=== PATIENT | female | born 2000 | race Caucasian/White ===

== ENCOUNTER 2020-03-28 13:02 | Emergency (ER) | payer OTHER, SELFPAY ==
[2020-03-28 13:15] VITALS: BP 122/63; PULSE 80; RESP 20; TEMP 37.8; O2SAT 100
--- NOTE | 2020-03-28 13:33 | ED.URI ---
HPI - URI/Sore Throat General Chief Complaint: Upper Respiratory Infection Stated Complaint: sore throat Time Seen by Provider: 03/28/20 13:19 Source: patient and RN notes reviewed Mode of arrival: ambulatory Limitations: no limitations History of Present Illness HPI Narrative: Patient presents today with a 4-day history of sore throat that increases with swallowing. Denies fever, cough, congestion, runny nose. Currently rates her sore throat 05/09 and has been taking Tylenol with mild relief. Reports she has had strep throat 3 times in the last 3 months, and all 3 times she was treated with amoxicillin by her PCP. MD elicited complaint: sore throat Related Data Home Medications Medication Instructions Recorded Confirmed norgestimate-ethinyl estradiol 1 tablet PO DAILY 03/28/20 03/28/20 [Sprintec (28)] valacyclovir 500 mg PO DAILY 03/28/20 03/28/20 Allergies Allergy/AdvReac Type Severity Reaction Status Date / Time menthol Allergy Unknown Rash Verified 03/28/20 13:19 Sulfa (Sulfonamide Allergy Unknown Rash Verified 03/28/20 13:19 Antibiotics) idea man AdvReac Unknown Unknown Uncoded 03/28/20 13:19 Review of Systems Review of Systems: Narrative: CONSTITUTIONAL: Denies body aches, fever, chills, or sweats. EYES: Denies visual changes, redness, or discharge. ENT: Denies rhinorrhea, congestion, or otalgia.+ Sore throat CARDIOVASCULAR: Denies chest pain, palpitations, or edema. RESPIRATORY: Denies cough or dyspnea. GASTROINTESTINAL: Denies abdominal pain, nausea, vomiting, or diarrhea. GENITOURINARY: Denies dysuria or hematuria. SKIN: Denies rash, itching, or wounds. MUSCULOSKELETAL: Denies back pain, joint pain, or myalgia. NEUROLOGIC: Denies headache, numbness, tingling, or weakness. PSYCH: Denies depression or anxiety. [facility] Past Medical History Medical History (Updated 03/28/20 @ 13:36 by RUPERTO Platt, ) Migraine Social History Social History Smoking status: Never smoker Gender identity (if verbalized by the patient): Female Comments At time of signature, I have reviewed and agree with nursing past medical, surgical, social and family history unless otherwise noted. Please see nursing chart for further information. There is no relevant family history pertinent to the presenting complaint Exam Narrative: Exam Narrative: GENERAL: Well-appearing, well-nourished, and in no acute distress. HEAD: Normocephalic, atraumatic. EYES: EOMI. No redness or drainage. Conjunctivae normal. ENT: Mucous membranes pink and moist. Nares clear. No rhinorrhea. TMs normal bilaterally. Throat mildly erythematous and edematous. Tonsils 2+ without exudate. Uvula midline. NECK: Normal AROM. Supple. Left anterior cervical chain lymphadenopathy. CHEST: No respiratory distress. Clear to auscultation. HEART: Regular rate and rhythm. No murmur appreciated. Normal peripheral pulses. EXTREMITIES: Normal range of motion. No edema. SKIN: Warm, dry, no rash. Capillary refill normal. Normal skin turgor. NEURO: No focal deficits. Alert and oriented x3. Gait steady. PSYCH: Normal affect. No signs of depression or anxiety. Course Vital Signs Vital signs: Vital Signs Temperature 100.0 F H 03/28/20 13:15 Pulse Rate 80 03/28/20 13:15 Respiratory Rate 03/28/20 13:15 Blood Pressure 122/63 03/28/20 13:15 Pulse Oximetry 100 03/28/20 13:15 Temperature 100.0 F H 03/28/20 13:15 Pulse Rate 80 03/28/20 13:15 Respiratory Rate 03/28/20 13:15 Blood Pressure 122/63 03/28/20 13:15 Pulse Oximetry 100 03/28/20 13:15 Reviewed. Pt has been instructed to follow up with her PCP regarding her elevated blood pressure today. MDM - URI/Sore Throat Differential Diagnosis Differential diagnosis: Likely upper respiratory infection, otitis media, viral infection, pharyngitis and other (Strep throat) Lab Data Attestation: I reviewed th
== END 2020-03-28 13:39 | disposition home or self-care (01) ==
PROVIDERS: Emergency Provider Nurse Practitioner; PCP Nurse Practitioner Family
DX: J02.0 Streptococcal pharyngitis (principal)
CPT/HCPCS: 87880; 99213; G0463

== ENCOUNTER 2020-05-17 00:33 | Outpatient (CLI) | payer OTHER, SELFPAY ==
[2020-05-17 18:31] LABS: SARS-CoV-2 RNA PCR Positive
== END 2020-05-17 00:34 | disposition home or self-care (01) ==
LOC: ANHCOVIDDT 00:33
PROVIDERS: PCP Nurse Practitioner Family; Visit Provider Otolaryngology
DX: U07.1 COVID-19 (principal)
CPT/HCPCS: 87635; C9803; U0003

== ENCOUNTER 2022-07-01 16:18 | Emergency (ER) | payer OTHER, SELFPAY ==
[2022-07-01 16:25] VITALS: BP 135/76; PULSE 89; RESP 18; TEMP 37.3; O2SAT 100
--- NOTE | 2022-07-01 16:26 | ED.SKABFB ---
HPI - Skin/Abscess/Foreign Bdy General Chief complaint: Skin/Abscess/Foreign Body Stated complaint: rash Time Seen by Provider: 07/01/22 16:26 Source: patient, RN notes reviewed and old records reviewed Mode of arrival: ambulatory Limitations: no limitations History of Present Illness HPI narrative: 22-year-old female who presents to [facility] care with complaints of rash to the top of her head and forehead for 2 days. Patient has raised red blistery lesions noted to the top of head and to forehead which are red blistery with yellow drainage and crusty appearance which patient reports are itchy and painful. Patient states that she has not used any new makeup, no new skin products or any new foods or medications. MD complaint: rash and lesion Onset (ago): day(s) (2) Severity scale (1-10): 4 Treatments prior to arrival: OTC topical medication and Benadryl Related Data Home Medications Medication Instructions Recorded Confirmed norgestimate 0.25 mg-ethinyl 1 tablet PO DAILY 03/28/20 05/08/20 estradiol 35 mcg tablet (Sprintec (28)) valacyclovir 500 mg tablet 500 mg PO DAILY 03/28/20 05/08/20 buspirone 5 mg tablet mg 07/01/22 escitalopram oxalate 10 mg tablet mg 07/01/22 Allergies Allergy/AdvReac Type Severity Reaction Status Date / Time menthol Allergy Unknown Rash Verified 07/01/22 16:26 Sulfa (Sulfonamide Allergy Unknown Rash Verified 07/01/22 16:26 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 EYES: Denies visual changes, redness, or discharge. ENT: Denies rhinorrhea, congestion, sore throat, or otalgia. CARDIOVASCULAR: Denies chest pain, palpitations, or edema. RESPIRATORY: Denies cough or dyspnea. GASTROINTESTINAL: Denies abdominal pain, nausea, vomiting, or diarrhea. GENITOURINARY: Denies dysuria or hematuria. SKIN: Positive for red blistery crusting lesions to the top of her head and on forehead for 2 days itchy and painful MUSCULOSKELETAL: Denies back pain, joint pain, or myalgia. NEUROLOGIC: Denies headache, numbness, or weakness. PSYCHIATRIC: positive for anxiety or depression. All systems reviewed & are unremarkable except as noted in HPI and below PMFSH Past Medical History Medical History (Updated 07/04/22 @ 10:56 by Lazara Blanchard NP) Anxiety Foot fracture Migraine Strep throat Social History Social History Smoking status: Never smoker Gender identity (if verbalized by the patient): Female Spiritual care concerns: No Comments At time of signature, agree with nursing past medical, surgical, social and family history. There is no relevant family history pertinent to the presenting complaint Exam Narrative: GENERAL: Well-appearing, well-nourished, and in no acute distress. HEAD: Normocephalic, atraumatic. EYES: PERRLA and EOMI. ENT: Nares clear, no rhinorrhea or epistaxis. Mucous membranes moist.TM's normal, throat normal with no lesions or exudates, mild tonsil swelling without redness NECK: Supple.no lymphadenopathy CHEST: Clear to auscultation. No respiratory distress.SAO2 100% on room air HEART: Regular rate and rhythm. No murmur heard. Normal peripheral pulses. ABDOMEN: Soft, nontender, nondistended, normal active bowel sounds. Normal range of motion. No edema. SKIN: Warm, dry, red lesions on head and forehead which are crusty with yellowish drainage itchy and painful NEURO: No focal deficits. Alert and oriented x3. Course Course Level of Care: Express Care Visit Vital Signs Vital signs: Vital Signs Temperature 37.3 C 07/01/22 16:25 Pulse Rate 89 07/01/22 16:25 Respiratory Rate 18 07/01/22 16:25 Blood Pressure 135/76 07/01/22 16:25 Pulse Oximetry 100 07/01/22 16:25 Oxygen Delivery Room Air 07/01/22 16:25 Temperature 37.3 C 07/01/22 16:27 Pulse Rate 89 07/01/22 16:27 Respir
[2022-07-01 16:27] VITALS: BP 135/76; PULSE 89; RESP 18; TEMP 37.3; O2SAT 100
== END 2022-07-01 16:56 | disposition home or self-care (01) ==
PROVIDERS: Emergency Provider Registered Nurse; PCP Nurse Practitioner Family
DX: L01.00 Impetigo, unspecified (principal); F41.9 Anxiety disorder, unspecified
CPT/HCPCS: 99213; G0463

== ENCOUNTER 2022-08-23 11:09 | Emergency (ER) | payer OTHER, SELFPAY ==
--- NOTE | ~2022-08-23 | XR_ITS ---
EXAMINATION: XR wrist RT min 3V DATE: 08/23/2022 11:58 INDICATION: Distal right radius pain for 2 months. TECHNIQUE: 4 views of right wrist were obtained. COMPARISON: None. FINDINGS: Bone alignment is normal. No fracture. Joint spaces are well maintained. IMPRESSION: 1. Normal right wrist. Reviewed, dictated and finalized at location A. IMPRESSION: 1. Normal right wrist.
[2022-08-23 11:40] VITALS: BP 119/76; PULSE 92; RESP 18; TEMP 36.9; O2SAT 99
--- NOTE | 2022-08-23 12:07 | ED.UPPEXIN ---
HPI - Extremity Injury (Upper) General Chief Complaint: Extremity Injury, Upper Stated Complaint: rt wrist injury Time Seen by Provider: 08/23/22 11:50 Source: patient Mode of arrival: ambulatory Limitations: no limitations History of Present Illness HPI narrative: Victoria is a 22-year-old female patient presenting to the clinic today with complaints of right wrist pain x2 months. She reports she initially injured her wrist when helping with gymnastics and intact bending her wrist backwards. She reports pain over the radial aspect of the right wrist. She reports that the pain does shoot up into her forearm. 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 Patient denies any fever, chills, rash, headache, visual changes, dizziness, cough, runny nose, sore throat, shortness of breath, chest pain, palpitations, nausea, vomiting, diarrhea, constipation, abdominal pain, or any urinary issues. PMFSH Past Medical History Medical History Anxiety Foot fracture Migraine Strep throat Social History Social History Smoking status: Never smoker Gender identity (if verbalized by the patient): Female Spiritual care concerns: No Comments At the time of my signature, I reviewed and agree with the nursing past medical, surgical, social, and family history. There is no relevant family history pertinent to the patient complaint. Exam Narrative: General: Well-developed, well nourished, in no apparent distress Head: Normocephalic, atraumatic. Cardio: Regular rate and rhythm, s1 and s2 normal, no murmur appreciated. Resp: Clear to auscultation bilaterally, no rhonchi, rales, wheezing or rubs. Musculoskeletal: No deformity, tender to palpation over the right radius, pain with flexion and extension right wrist over the right radial, grossly normal range of motion, Brannon test positive, muscle strength strong and equal, peripheral pulse strong, no edema, no cyanosis, normal gait and station Course Course Emergency Course: Portions of this record may have been created with voice recognition software. Level of Care: Express Care Visit Vital Signs Vital signs: Vital Signs Temperature 36.9 C 08/23/22 11:40 Pulse Rate 92 08/23/22 11:40 Respiratory Rate 18 08/23/22 11:40 Blood Pressure 119/76 08/23/22 11:40 Pulse Oximetry 99 08/23/22 11:40 Oxygen Delivery Room Air 08/23/22 11:40 Temperature 36.9 C 08/23/22 11:40 Pulse Rate 92 08/23/22 11:40 Respiratory Rate 18 08/23/22 11:40 Blood Pressure 119/76 08/23/22 11:40 Pulse Oximetry 99 08/23/22 11:40 Oxygen Delivery Room Air 08/23/22 11:40 Vital signs reviewed MDM - Extremity Injury (Upper) MDM Narrative Medical decision making narrative: At the time of visit patient is resting comfortably on the exam table. She has tenderness over the right radius with a positive Brannon test. X-ray was performed and was negative for any fracture or malalignment of the right wrist. I suspect patient has de Quervain syndrome. Supportive measures were discussed with the patient she voiced understanding of discharge instructions. I will send in
== END 2022-08-23 12:20 | disposition home or self-care (01) ==
PROVIDERS: Emergency Provider Nurse Practitioner Family; PCP Nurse Practitioner Family
DX: M65.4 Radial styloid tenosynovitis [de Quervain] (principal); F41.9 Anxiety disorder, unspecified
CPT/HCPCS: 73110; 99213; G0463

== ENCOUNTER 2023-01-28 20:55 | Emergency (ER) | payer OTHER, SELFPAY ==
[2023-01-28 20:56] VITALS: BP 140/96; PULSE 76; RESP 16; TEMP 36.3; O2SAT 100
--- NOTE | 2023-01-28 23:13 | ED.GENADULT ---
HPI - General Adult General Chief complaint: Headache Stated complaint: migraine x2 days Time Seen by Provider: 01/28/23 22:41 History of Present Illness HPI narrative: 22-year-old presented to the emergency department for evaluation of persistent migraine headache. Patient states his headache started approximately 2 days ago. Patient states the headache is similar to her previous migraines in both initiation and character. Patient states she does have light sensitivity, nausea and vomiting, weakness to the left side of her body and headache. Patient states all of the symptoms are similar to her previous migraine. Patient states none of the symptoms are new including the left-sided weakness. Patient denies any falls or injuries, fevers. 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 EYES: PERRLA/EOMI, conjunctivae clear. NOSE: Normal no drainage NECK: Supple. No adenopathy, no masses. RESPIRATORY: Airway patent, respirations nonlabored. Clear to auscultation bilaterally, no rales, rhonchi, wheezing. CARDIOVASCULAR: Regular rate and rhythm without murmurs rubs or gallops. ABDOMINAL: Soft, nontender, nondistended, normal bowel sounds MUSCULOSKELETAL: Moves all extremities. Strength/ROM intact, No edema, No calf tenderness. NEURO: Alert. Cranial nerves II through XII intact. No ataxia, no weakness, normal neuro exam, normal finger-nose and normal strength reflexes SKIN: Warm, dry. Normal Color Course Course Emergency Course: 22-year-old female with history of complex migraine presenting with symptoms consistent with her previous complex migraine. Patient was treated with IV fluids, IV Toradol, IV Benadryl and IV Compazine. Patient states she is not 12:14 AM. Patient does feel significantly improved. Patient states her headache and symptoms are resolved. Patient is requesting discharge home. Patient was encouraged to have close follow-up with her primary care physician. All questions and concerns were addressed. Vital Signs Vital signs: Vital Signs Temperature 97.3 F L 01/28/23 20:56 Pulse Rate 76 01/28/23 20:56 Respiratory Rate 16 01/28/23 20:56 Blood Pressure 140/96 H 01/28/23 20:56 Pulse Oximetry 100 01/28/23 20:56 Oxygen Delivery Room Air 01/28/23 20:56 Temperature 97.3 F L 01/28/23 20:56 Pulse Rate 70 01/29/23 00:26 Respiratory Rate 16 01/29/23 00:26 Blood Pressure 118/69 01/29/23 00:26 Pulse Oximetry 99 01/29/23 00:26 Oxygen Delivery Room Air 01/28/23 20:56 Medical Decision Making Vital Signs Vital Signs: Vital Signs Temperature 97.3 F L 01/28/23 20:56 Pulse Rate 76 01/28/23 20:56 Respiratory Rate 16 01/28/23 20:56 Blood Pressure 140/96 H 01/28/23 20:56 Pulse Oximetry 100 01/28/23 20:56 Oxygen Delivery Ro
[2023-01-28] MEDS: SODIUM CHLORIDE 0.9% IV 1,000 ML 999 ML IV CONT (23:28)
[2023-01-28] MEDS: diphenhydrAMINE HCl INJ 50 MG/ML VIAL 25 MG IV PUSH (23:28)
[2023-01-28] MEDS: KETOROLAC 15 MG/ML VIAL (*BKC) IV PUSH (23:29)
[2023-01-28] MEDS: PROCHLORPERAZINE EDISYLATE 10 MG/2 ML VIAL IV PUSH (23:31)
[2023-01-29 00:02] VITALS: BP 108/56; PULSE 67; RESP 16; O2SAT 100
[2023-01-29 00:26] VITALS: BP 118/69; PULSE 70; RESP 16; O2SAT 99
== END 2023-01-29 00:26 | disposition home or self-care (01) ==
PROVIDERS: Emergency Provider Emergency Medicine; PCP Nurse Practitioner Family
DX: G43.909 Migraine, unspecified, not intractable, without status migrainosus (principal); F41.9 Anxiety disorder, unspecified
CPT/HCPCS: 96361; 96374; 96375; 99284; J0780; J1200; J1885; J7030

== ENCOUNTER 2024-03-31 12:29 | Emergency (ER) | payer OTHER, SELFPAY ==
--- NOTE | ~2024-03-31 | XR_ITS ---
EXAMINATION: XR lumbar spine 2-3V DATE: 03/31/2024 14:04 INDICATION: Low back pain radiating down right leg. TECHNIQUE: 3 views of lumbar spine were obtained. COMPARISON: Spine radiograph 04/17/2010 FINDINGS: Bone alignment is normal. Vertebral body heights are normal. Intervertebral disc heights ar e normal. The facet joints are unremarkable. IMPRESSION: 1. Normal lumbar spine. Reviewed, dictated and finalized at location E. IMPRESSION: 1. Normal lumbar spine.
[2024-03-31 12:35] VITALS: BP 152/88; PULSE 98; RESP 18; TEMP 36.7; O2SAT 100
--- NOTE | 2024-03-31 13:53 | ED.BACK ---
HPI - Back Pain/Injury General Chief Complaint: Back Pain/Injury Stated Complaint: Lower Back Pain Time Seen by Provider: 03/31/24 13:45 Source: patient Mode of arrival: ambulatory Limitations: no limitations History of Present Illness HPI Narrative: Victoria is a 24-year-old female patient presenting to the ER today with complaints of low back pain that occurred around 645 this morning. She reports that she coughed and had a sharp pain in her back with some right-sided sharp pain into her hip and down her leg. She denies any history of back injuries. 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 She states this pain is worse with movement. Currently rates it a 10/10. She is currently wearing a back brace. Took Tylenol at 7:00 a.m. this morning and it did not help. She denies any saddle anesthesia or loss of bowel or bladder. Denies any numbness but does have pain shooting down the right leg but sharp. Denies any chance of . 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 Patient denies any fever, chills, rash, headache, visual changes, dizziness, cough, runny nose, sore throat, shortness of breath, chest pain, palpitations, nausea, vomiting, diarrhea, constipation, abdominal pain, or any urinary issues. [facility] Past Medical History Medical History Anxiety Foot fracture Migraine Strep throat Social History Social History (Reviewed 03/31/24 @ 14:14 by KARELY Ratliff Smoking status: Never smoker Gender identity (if verbalized by the patient): Female Spiritual care concerns: No Comments At the time of my signature, I reviewed and agree with the nursing past medical, surgical, social, and family history. There is no relevant family history pertinent to the patient complaint. Exam Narrative: General: Well-developed, well nourished, in no apparent distress Head: Normocephalic, atraumatic. Cardio: Regular rate and rhythm, s1 and s2 normal, no murmur appreciated. Resp: Clear to auscultation bilaterally, no rhonchi, rales, wheezing or rubs. Musculoskeletal: No deformity, tender to palpation over L3-S1, pain radiating down right leg in tenderness over right SI joint, pain with flexion and extension of the lumbar spine, bilateral lower muscle strength strong and equal, peripheral pulse strong, no edema, no cyanosis, sitting in a wheelchair Course Course Emergency Course: Portions of this record may have been created with voice recognition software. Vital Signs Vital signs: Vital Signs Temperature 36.7 C 03/31/24 12:35 Pulse Rate 98 03/31/24 12:35 Respiratory Rate 18 03/31/24 12:35 Blood Pressure 152/88 H 03/31/24 12:35 Pulse Oximetry 100 03/31/24 12:35 Oxygen Delivery Room Air 03/31/24 12:35 Temperature 36.7 C 03/31/24 12:35 Pulse Rate 98 03/31/24 12:35 Respiratory Rate 18 03/31/24 12:35 Blood Pressure 152/88 H 03/31/24 12:35 Pulse Oximetry 100 03/31/24 12:35 Oxygen Delivery Room Air 03/31/24 12:35 Vital signs reviewed MDM - Back Pain/Injury MDM Narrative Medical decision making narrative: At the time of visit patient is resting comfortably on the exam table. Patient appears to be nontoxic. Diagnostics: Lumbar sp
[2024-03-31] MEDS: NAPROXEN 500 MG TABLET PO (14:06)
--- NOTE | 2024-03-31 14:07 | PC.NURSE ---
unable to scan medication due to broken scanner.
[2024-03-31 14:51] VITALS: BP 138/85; PULSE 72; RESP 15; TEMP 36.8; O2SAT 100
== END 2024-03-31 14:52 | disposition home or self-care (01) ==
PROVIDERS: Emergency Provider Nurse Practitioner Family
DX: M54.41 Lumbago with sciatica, right side (principal); F41.9 Anxiety disorder, unspecified
CPT/HCPCS: 72100; 99283; A9270